=== PATIENT | female | born 1950 | race Caucasian/White ===

== ENCOUNTER → 2023-11-27 12:54 | Outpatient (BNVA) | payer MEDICARE, SELFPAY | PROVIDERS: Visit Provider Student in an Organized Health Care Education/Training Program | DX: M75.41 Impingement syndrome of right shoulder | CPT/HCPCS: 20610; 73030; 99204; J1040 ==

== ENCOUNTER → 2024-01-24 11:10 | Outpatient (BNVA) | payer MEDICARE, SELFPAY | PROVIDERS: Visit Provider Physician Assistant | DX: M75.41 Impingement syndrome of right shoulder; M75.42 Impingement syndrome of left shoulder | CPT/HCPCS: 20610; 73030; 99213; J3301 ==

== ENCOUNTER → 2024-03-13 08:44 | Outpatient (BNVA) | payer MEDICARE, SELFPAY | PROVIDERS: PCP Nurse Practitioner Family; Visit Provider Physician Assistant | DX: M75.41 Impingement syndrome of right shoulder (principal) | CPT/HCPCS: 20610; 99213; J3301 ==

== ENCOUNTER → 2024-07-03 13:47 | Outpatient (BNVA) | payer MEDICARE, SELFPAY | PROVIDERS: PCP Nurse Practitioner Family; Visit Provider Physician Assistant | DX: M75.42 Impingement syndrome of left shoulder (principal); M75.41 Impingement syndrome of right shoulder | CPT/HCPCS: 20610; 99213; J3301 ==